=== PATIENT | male | born 1980 | race African-American/Black ===

== ENCOUNTER 2017-09-26 12:15 | Emergency (ER) | payer MEDICAID ==
[~2017-09-26] VITALS: Ht 190.5 cm; Wt 182.8 kg
--- NOTE | 2017-09-26 12:32 | NUR ---
PT IS IN ROOM #2A. DR CHAIREZ EVALUATED THE PT.
[2017-09-26 12:52] LABS: BASOPHILS # (AUTO) 0.1 K/uL (0.0-8.0); BASOPHILS % (AUTO) 0.8 % (0.0-2.0); EOSINOPHILS # (AUTO) 0.2 K/uL (0.0-0.7); EOSINOPHILS % (AUTO) 2.7 % (0.0-7.0); HEMATOCRIT 41.9 % (36.7-47.1); HEMOGLOBIN 13.2 g/dL (12.5-16.3); LYMPHOCYTES # (AUTO) 2.1 K/uL (20.0-40.0); LYMPHOCYTES % (AUTO) 29.7 % (20.5-51.5); MEAN CORPUSCULAR HEMOGLOBIN 22.3 uug (23.8-33.4); MEAN CORPUSCULAR HGB CONC 31 g/dL (32.5-36.3); MEAN CORPUSCULAR VOLUME 70.9 fL (73.0-96.2); MONOCYTES # (AUTO) 0.3 K/uL (2.0-10.0); MONOCYTES % (AUTO) 4.7 % (0.0-11.0); NEUTROPHILS # (AUTO) 4.4 K/uL (1.8-8.9); NEUTROPHILS % (AUTO) 62.1 % (38.5-71.5); PLATELET COUNT (AUTO) 191 K/uL (152-348); RED BLOOD CELL COUNT(AUTO) 5.91 MIL/uL (4.06-5.63); WHITE BLOOD COUNT (AUTO) 7.1 K/uL (3.6-10.2)
[2017-09-26 13:08] LABS: BILIRUBIN,TOTAL 0.9 mg/dL (0.2-1.0); CREATININE 0.9 mg/dL (0.6-1.3); TOTAL PROTEIN, SERUM 6.9 g/dL (6.4-8.2)
[2017-09-26 13:14] LABS: *BLOOD, URINE Trace-intact (NEGATIVE); *CLARITY,URINE CLEAR (CLEAR); *COLOR,URINE YELLOW (YELLOW); *KETONES,URINE 1+ (NEGATIVE); LEUKOCYTE ESTERASE ,URINE NEGATIVE (NEGATIVE); NITRITE, URINE NEGATIVE (NEGATIVE); PH,URINE 5.5 (5.0-8.0)
[2017-09-26 13:21] LABS: *PROTEIN,URINE 3+ (NEGATIVE)
[2017-09-26 13:22] LABS: *BILIRUBIN,URIN 2+ (NEGATIVE); UGLUCOSE 2+ (NEGATIVE)
[2017-09-26 13:27] LABS: BACTERIA,URINE FEW /HPF (NONE SEEN); MUCUS,URINE FEW /LPF (0-FEW); SQUAMOUS EPITHELIAL CELL,UR FEW /HPF (NONE SEEN)
[2017-09-26] MEDS ORDERED: MELO-107 PO (13:44)
[2017-09-26] MEDS ORDERED: INDO50CA PO (13:44)
[2017-09-26] MEDS ORDERED: LORA-656 PO (13:44)
[2017-09-26] MEDS ORDERED: METF10004 PO (13:44)
[2017-09-26] MEDS ORDERED: COLC0.6C3 PO (13:44)
[2017-09-26] MEDS ORDERED: ALBU18HF2 IH (13:44)
[2017-09-26] MEDS ORDERED: AMLO5TAB2 PO (13:44)
[2017-09-26] MEDS ORDERED: ALLO300T2 PO (13:44)
[2017-09-26] MEDS ORDERED: SIMV20TA6 PO (13:44)
--- NOTE | 2017-09-26 15:03 | NUR ---
PT WAS D/C TO HOME AFTER DR CHAIREZ EVALUATION. D/C INSTRUCTIONS GIVEN TO THE PT.
[2017-09-26 15:04] VITALS: BP 146/88
== END 2017-09-26 15:05 | disposition home or self-care (01) ==
LOC: ER 12:15
DX: E11.65 Type 2 diabetes mellitus with hyperglycemia (principal); I10 Essential (primary) hypertension; Z79.84 Long term (current) use of oral hypoglycemic drugs; Z79.899 Other long term (current) drug therapy
CPT/HCPCS: 36415; 85025; A4663